=== PATIENT | male | born 1985 | race Caucasian/White ===

== ENCOUNTER 2016-11-20 07:07 | Emergency (ER) | payer OTHER ==
[~2016-11-20] VITALS: Ht 172.7 cm; Wt 90.0 kg
[2016-11-20 10:00] VITALS: BP 142/88
[2016-11-20] MEDS ORDERED: BACITRACIN ZINC OINT UDPKT TOP ONE (12:30)
== END 2016-11-20 13:40 | disposition home or self-care (01) ==
LOC: ER 07:13
DX: S62.620A Displaced fracture of middle phalanx of right index finger, initial encounter for closed fracture (principal); S60.011A Contusion of right thumb without damage to nail, initial encounter; M25.561 Pain in right knee; V29.9XXA Motorcycle rider (driver) (passenger) injured in unspecified traffic accident, initial encounter; Y93.89 Activity, other specified; Y92.89 Other specified places as the place of occurrence of the external cause; Y99.8 Other external cause status; Z90.49 Acquired absence of other specified parts of digestive tract
CPT/HCPCS: 29130; 73130; 73562; 99284